=== PATIENT | female | born 1955 | race Caucasian/White ===

== ENCOUNTER 2021-07-02 08:58 | Outpatient (REF) | payer OTHER, SELFPAY ==
[2021-07-02 11:13] LABS: MANUAL DIFF FLAG NO
[2021-07-02 11:31] LABS: Basophils Percent Auto 0.5 % (0-2); Eosinophils Absolute Auto 0.1 X10*3/uL (0.0-0.4); Eosinophils Percent Auto 2.3 % (0-4); Hematocrit 39.7 % (37-47); Lymphocytes Absolute Auto 1.9 X10*3/uL (1.2-4.9); Mean Corpuscular HGB Conc 32.7 g/dl (31.0-35.0); Mean Corpuscular Hemoglobin 31.4 pg (27.0-33.0); Mean Corpuscular Volume 95.9 fL (80-98); Mean Platelet Volume 10.7 fL (9.4-12.3); Monocytes Absolute Auto 0.4 X10*3/uL (0.1-1.2); Monocytes Percent Auto 9.3 % (2-11); Neutrophils Absolute Auto 1.6 X10*3/uL (2.0-8.3); Neutrophils Percent Auto 39.9 % (45-73); Platelet Count 231 X10*3/uL (160-400); Red Blood Count 4.14 X10*6/uL (4.20-5.50); Red Cell Distribution Width 12.4 % (11.0-16.0)
[2021-07-02 11:38] LABS: Alanine Aminotransferase 16 U/L (0-31); Albumin Level 4.1 g/dL (3.5-5.0); Alkaline Phosphatase 78 U/L (39-117); Anion Gap 10 (12-20); Aspartate Amino Transferase 19 U/L (5-31); Bilirubin Total 0.4 mg/dL (0.0-1.0); Blood Urea Nitrogen 14 mg/dL (9-16); Calcium 9.2 mg/dL (8.4-10.2); Carbon Dioxide 28 mmol/L (22-29); Chloride 106 mmol/L (96-108); Cholesterol 245 mg/dL; Estimated Glomerular Filt Rate > 60; Glucose Fasting 93 mg/dL (60-99); HDL Cholesterol 76 mg/dL; LDL Cholesterol Calculated 157 mg/dl; Potassium 4.3 mmol/L (3.3-5.1); Sodium 140 mmol/L (135-145); Total Protein 6.8 g/dL (6.5-8.0); Triglycerides 60 mg/dL
[2021-07-02 12:04] LABS: Thyroid Stimulating Hormone 1.41 uIU/mL (0.32-4.0); Vitamin D 25-OH Total 29.4 ng/mL (>30)
[2021-07-02 12:46] LABS: Vitamin B12 383 pg/mL (200-900)
== END 2021-07-02 08:59 | disposition home or self-care (01) ==
LOC: HO.MANLDS 08:58
PROVIDERS: PCP Internal Medicine; Visit Provider Internal Medicine
DX: Z00.00 Encounter for general adult medical examination without abnormal findings (principal)
CPT/HCPCS: 36415; 80053; 80061; 82306; 82607; 84443; 85025

== ENCOUNTER 2022-04-03 09:42 | Outpatient (REF) | payer OTHER, SELFPAY ==
[2022-04-03 12:05] LABS: Cholesterol 256 mg/dL; HDL Cholesterol 74 mg/dL; LDL Cholesterol Calculated 172 mg/dl; Triglycerides 52 mg/dL
== END 2022-04-03 09:43 | disposition home or self-care (01) ==
LOC: HO.MANLDS 09:42
PROVIDERS: PCP Internal Medicine; Visit Provider Internal Medicine
DX: E78.5 Hyperlipidemia, unspecified (principal)
CPT/HCPCS: 36415; 80061

== ENCOUNTER 2023-03-26 10:10 | Outpatient (REF) | payer OTHER, SELFPAY ==
[2023-03-26 15:08] LABS: Alanine Aminotransferase 14 U/L (0-31); Albumin Level 3.9 g/dL (3.5-5.0); Alkaline Phosphatase 85 U/L (39-117); Anion Gap 9 (12-20); Aspartate Amino Transferase 16 U/L (5-31); Bilirubin Total 0.5 mg/dL (0.0-1.0); Blood Urea Nitrogen 17 mg/dL (9-16); Calcium 9.1 mg/dL (8.4-10.2); Carbon Dioxide 31 mmol/L (22-29); Chloride 108 mmol/L (96-108); Cholesterol 260 mg/dL; Estimated Glomerular Filt Rate > 60; Glucose Random 81 mg/dL (60-115); HDL Cholesterol 70 mg/dL; LDL Cholesterol Calculated 176 mg/dl; Potassium 4.6 mmol/L (3.3-5.1); Sodium 143 mmol/L (135-145); Total Protein 6.5 g/dL (6.5-8.0); Triglycerides 71 mg/dL
[2023-03-28 15:43] LABS: CRP High Sensitivity 1.7 mg/L
== END 2023-03-26 10:11 | disposition home or self-care (01) ==
LOC: HO.MANLDS 10:10
PROVIDERS: Visit Provider Internal Medicine
DX: Z13.220 Encounter for screening for lipoid disorders (principal); E78.00 Pure hypercholesterolemia, unspecified
CPT/HCPCS: 36415; 80053; 80061; 86141

== ENCOUNTER 2023-05-14 11:45 | Outpatient (REF) | payer OTHER, SELFPAY ==
[2023-05-14 13:59] LABS: MANUAL DIFF FLAG NO
[2023-05-14 14:24] LABS: Basophils Percent Auto 0.4 % (0-2); Eosinophils Absolute Auto 0.1 X10*3/uL (0.0-0.4); Eosinophils Percent Auto 1.4 % (0-4); Hematocrit 41.5 % (37.0-47.0); Hemoglobin 13.9 g/dl (12.0-16.0); Imm Gran Abs Auto 0.01 X10*3/uL (0.00-0.03); Imm Gran Pct Auto 0.2 % (0.0-0.4); Lymphocytes Absolute Auto 1.6 X10*3/uL (1.2-4.9); Lymphocytes Percent Auto 30.9 % (20-40); Mean Corpuscular HGB Conc 33.5 g/dl (31.0-35.0); Mean Corpuscular Hemoglobin 31.6 pg (27.0-33.0); Mean Corpuscular Volume 94.3 fL (80.0-98.0); Mean Platelet Volume 10.5 fL (9.4-12.3); Monocytes Absolute Auto 0.4 X10*3/uL (0.1-1.2); Monocytes Percent Auto 7.9 % (2-11); Neutrophils Percent Auto 59.2 % (45-73); Platelet Count 222 X10*3/uL (160-400); White Blood Count 5.1 X10*3/uL (4.8-10.8)
[2023-05-14 14:49] LABS: Alanine Aminotransferase 14 U/L (0-31); Albumin Level 3.9 g/dL (3.5-5.0); Alkaline Phosphatase 81 U/L (39-117); Anion Gap 12 (12-20); Aspartate Amino Transferase 15 U/L (5-31); Bilirubin Total 0.6 mg/dL (0.0-1.0); Blood Urea Nitrogen 15 mg/dL (9-16); C Reactive Protein 0.88 mg/dL (< or = 0.50); Calcium 9.7 mg/dL (8.4-10.2); Carbon Dioxide 29 mmol/L (22-29); Chloride 104 mmol/L (96-108); Estimated Glomerular Filt Rate > 60; Glucose Random 101 mg/dL (60-115); Iron 87 mcg/dL (30-160); Magnesium 2.2 mg/dL (1.6-2.6); Percent Iron Saturation 34 % (15-50); Potassium 4.2 mmol/L (3.3-5.1); Sodium 141 mmol/L (135-145); Total Iron Binding Capacity 255 mcg/dL (228-428); Total Protein 7.2 g/dL (6.5-8.0); Unsaturated Iron Binding 168 ug/dL
[2023-05-14 15:04] LABS: Ferritin 97 ng/mL (10-250); Free T4 (Free Thyroxine) 0.95 ng/dL (0.71-1.85); Thyroid Stimulating Hormone 0.84 uIU/mL (0.32-4.0); Vitamin D 25-OH Total 39.4 ng/mL (>30)
[2023-05-14 15:06] LABS: Erythrocyte Sedimentation Rate 23 MM/HR (0-20)
[2023-05-14 15:11] LABS: Appearance Urine Clear; Color Urine Dark Yellow; Glucose Urine UA Negative (Negative); Leukocyte Esterase Urine Negative (Negative); Nitrite Urine Negative (Negative); PH 5.5 (5.0-9.0); Specific Gravity - Urine 1.025 (1.005-1.025); Urine Blood Negative (Negative); Urine Ketones Trace mg/dL (Negative); Urine Protein Negative (Neg-Trace)
[2023-05-14 15:13] LABS: Folate 17.6 ng/mL (> or = 4.0); Vitamin B12 541 pg/mL (200-900)
== END 2023-05-14 11:46 | disposition home or self-care (01) ==
LOC: HO.MANLDS 11:45
PROVIDERS: Visit Provider Physician Assistant
DX: R53.83 Other fatigue (principal); R30.0 Dysuria
CPT/HCPCS: 80053; 81003; 82306; 82607; 82728; 82746; 83540; 83735; 84439; 84443; 85025; 85652; 86140; 86618; 86666; 86753

== ENCOUNTER 2024-09-15 09:36 | Outpatient (REF) | payer OTHER, SELFPAY ==
[2024-09-15 13:23] LABS: MANUAL DIFF FLAG NO
[2024-09-15 13:32] LABS: Basophils Percent Auto 0.9 % (0-2); Eosinophils Absolute Auto 0.1 X10*3/uL (0.0-0.4); Eosinophils Percent Auto 1.5 % (0-4); Hematocrit 38.1 % (37.0-47.0); Hemoglobin 13.2 g/dl (12.0-16.0); Imm Gran Abs Auto 0.01 X10*3/uL (0.00-0.03); Imm Gran Pct Auto 0.3 % (0.0-0.4); Lymphocytes Absolute Auto 1.5 X10*3/uL (1.2-4.9); Lymphocytes Percent Auto 42.9 % (20-40); Mean Corpuscular HGB Conc 34.6 g/dl (31.0-35.0); Mean Corpuscular Volume 92.3 fL (80.0-98.0); Mean Platelet Volume 10.4 fL (9.4-12.3); Monocytes Absolute Auto 0.3 X10*3/uL (0.1-1.2); Monocytes Percent Auto 9.3 % (2-11); Neutrophils Absolute Auto 1.6 x10*3/uL (2.0-8.3); Neutrophils Percent Auto 45.1 % (45-73); Platelet Count 247 X10*3/uL (160-400); Red Blood Count 4.13 X10*6/uL (4.20-5.50); Red Cell Distribution Width 12.5 % (11.0-16.0); White Blood Count 3.4 X10*3/uL (4.8-10.8)
[2024-09-15 13:59] LABS: Alanine Aminotransferase 14 U/L (0-31); Albumin Level 3.8 g/dL (3.5-5.0); Alkaline Phosphatase 86 U/L (39-117); Anion Gap 11 (12-20); Aspartate Amino Transferase 24 U/L (5-31); Bilirubin Total 0.4 mg/dL (0.0-1.0); Blood Urea Nitrogen 15 mg/dL (9-16); Calcium 9.6 mg/dL (8.4-10.2); Carbon Dioxide 27 mmol/L (22-29); Chloride 107 mmol/L (96-108); Cholesterol 244 mg/dL (<200); Estimated Glomerular Filt Rate > 60; Glucose Random 93 mg/dL (60-115); HDL Cholesterol 61 mg/dL (>40); LDL Cholesterol Calculated 159 mg/dL (<100); Potassium 4.1 mmol/L (3.3-5.1); Sodium 141 mmol/L (135-145); Total Protein 6.7 g/dL (6.5-8.0); Triglycerides 124 mg/dL (<150)
[2024-09-15 14:10] LABS: T4 Thyroxine 6.5 ug/dL (4.5-12.0); Thyroid Stimulating Hormone 1.35 uIU/mL (0.32-4.0)
[2024-09-15 14:32] LABS: Vitamin B12 377 pg/mL (200-900)
== END 2024-09-15 09:37 | disposition home or self-care (01) ==
LOC: HO.MANLDS 09:36
PROVIDERS: Visit Provider Internal Medicine
DX: Z00.00 Encounter for general adult medical examination without abnormal findings (principal); R53.83 Other fatigue
CPT/HCPCS: 36415; 80053; 80061; 82306; 82607; 84436; 84443; 85025

== ENCOUNTER 2025-07-11 07:58 | Outpatient (REF) | payer OTHER, SELFPAY ==
--- OUTSIDE RECORDS SUMMARY | 2025-07-11 08:02 | XMS_ITS | Encounter Summary ---
Author Organization [facility] Address [address] [place], [place] [address] Phone Care Team Providers Care Water Pollution Specialist Name Role Phone Diego Castelan DO Primary Care Provider [phone] Encounter Details Date Type Department Care Team (Late st Contact Info) Description 03/22/2022 Procedure Pass [address] [address] Social History Tobacco Use Types Packs/Day Years Used Date Smoking Tobacco: Former Cigarettes Q uit: 11/28/1989 Smokeless Tobacco: Never Alcohol Use Standard Drinks/Week Comments Yes 3 (1 standard drink = 0.6 oz pur e alcohol) per week Comments No Sex and Gender Information Value Date Recorded Sex Assigned at Not on file Legal Sex Female 9:59 PM EDT Gender Identity Not on file Sexual Orientation Not on file documented as of this encounter Plan of Treatment Upcoming Encounters Date Type Department Care Team (Late st Contact Info) Description 07/04/2025 Procedure Pass [address] [address] 09/19/2025 8:30 AM EDT Appointment [address] [address] Diego Castelan DO [address] [place] [address] [email or web address] documented as of this encounter Visit Diagnoses Not on filedocumented in this encounter Care Teams Water Pollution Specialist Relationship Specialty Start Date End Date Diego Castelan DO [email or web address] PCP - General 09/09/17 documented as of this encounter Additional Source Comments The information contained in this document represents components of the legal health record. It is not the complete legal health record.[facility]
--- OUTSIDE RECORDS SUMMARY | 2025-07-11 08:02 | XMS_ITS | Patient Health Record ---
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
[2025-07-11 13:05] LABS: MANUAL DIFF FLAG NO
[2025-07-11 13:08] LABS: Hematocrit 40.4 % (37.0-47.0); Hemoglobin 13.4 g/dl (12.0-16.0); Imm Gran Abs Auto 0.01 X10*3/uL (0.00-0.03); Imm Gran Pct Auto 0.3 % (0.0-0.4); Lymphocytes Absolute Auto 1.8 X10*3/uL (1.2-4.9); Mean Corpuscular HGB Conc 33.2 g/dl (31.0-35.0); Mean Corpuscular Hemoglobin 31.2 pg (27.0-33.0); Mean Corpuscular Volume 94.0 fL (80.0-98.0); NRBC Abs Auto 0.000 X10*3/uL (0.0-0.012); NRBC Pct Auto 0.0 /100WBC (0.0-0.2); Platelet Count 238 X10*3/uL (160-400); Red Blood Count 4.30 X10*6/uL (4.20-5.50); White Blood Count 3.9 X10*3/uL (4.8-10.8)
[2025-07-11 13:34] LABS: Alanine Aminotransferase 19 U/L (0-31); Albumin Level 4.1 g/dL (3.5-5.0); Alkaline Phosphatase 93 U/L (39-117); Anion Gap 13 (12-20); Aspartate Amino Transferase 23 U/L (5-31); Blood Urea Nitrogen 20 mg/dL (9-16); Calcium 9.2 mg/dL (8.4-10.2); Carbon Dioxide 29 mmol/L (22-29); Chloride 105 mmol/L (96-108); Cholesterol 261 mg/dL (<200); Estimated Glomerular Filt Rate > 60; HDL Cholesterol 61 mg/dL (>40); Potassium 4.5 mmol/L (3.3-5.1); Sodium 142 mmol/L (135-145); Total Protein 7.0 g/dL (6.5-8.0); Triglycerides 120 mg/dL (<150)
[2025-07-11 14:03] LABS: Vitamin B12 292 pg/mL (200-900)
== END 2025-07-11 07:59 | disposition home or self-care (01) ==
LOC: HO.MANLDS 07:58
PROVIDERS: Visit Provider Internal Medicine
DX: Z00.00 Encounter for general adult medical examination without abnormal findings (principal); E03.9 Hypothyroidism, unspecified; E53.8 Deficiency of other specified B group vitamins; E55.9 Vitamin D deficiency, unspecified; R53.83 Other fatigue
CPT/HCPCS: 36415; 80053; 80061; 82306; 82607; 84443; 85025

== ENCOUNTER 2025-10-29 12:03 | Outpatient (REF) | payer OTHER, SELFPAY ==
--- OUTSIDE RECORDS SUMMARY | 2022-07-02 13:55 | XMS_ITS | Encounter Summary ---
Author Organization [facility] Address [address] [place] [address] Phone Care Team Providers Care Accounting Support Specialist Name Role Phone Diego Castelan Primary Care Provider [phone] Encounter Details Date Type Department Care Team (Late st Contact Info) Description 07/02/2022 2:55 PM EDT Hospital Encounter [facility] [address] [place] [address] Alia Singh, ARTIST MANAGER [address] [place] [address] [email or web address] Social History Tobacco Use Types Packs/Day Years Used Date Smoking Tobacco: Former Cigarettes 0.3 10 0 11/24/1985 - 11/28/1989 Smokeless Tobacco: Never Alcohol Use Standard Drinks/Week Comments Yes 2 (1 standard drink = 0.6 oz pur e alcohol) per week Education Answer Date Recorded Are you interested in more education? Not on jose f e 03/21/2023 Are you concerned about learning? Not on file 03/21/2023 No 03/21/2023 No 03/21/2023 Digital Access Answer Date Recorded No 04/18/2023 No 04/18/2023 Reliable internet access at home? Not on file 04/18/2023 Device with a working camera? Not on file Comments No Sex and Gender Information Value Date Recorded Sex Assigned at Not on file Legal Sex Female 9:59 PM EDT Gender Identity Not on file Sexual Orientation Not on file documented as of this encounter Plan of Treatment Not on file documented as of this encounter Procedures Procedure Name Priority Date/Time Associated Diagnosis Comments XR ANKLE 3 OR MORE VIEWS (LEFT) Urgent/patient waiting 07/02/2022 2:58 PM EDT Acute left ankle pain documented in this encounter Results * XR ANKLE 3 OR MORE VIEWS (LEFT) (07/02/2022 2:58 PM EDT) Anatomical Region Laterality Modality Ankle Left Computed Radiogr aphy 07/02/2022 3:01 PM EDT Impressions 07/02/2022 3:05 PM EDT No fracture or dislocation. ATTESTATION: Rocio Camilo as teaching physician, have reviewed the images for this case and if necessary edited the report originally created by Dagoberto Disla. Narrative 07/02/2022 3:05 PM EDT XR ANKLE 3 OR MORE VIEWS (LEFT) COMPARISON: Ankle L FINDINGS: No fracture. Normal alignment. Symmetric ankle mortise. Normal joint spaces. Diffuse soft tissue swelling about the ankle. Procedure Note Rocio Barrera MD - 07/02/2022 XR ANKLE 3 OR MORE VIEWS (LEFT) COMPARISON: Ankle L FINDINGS: No fracture. Normal alignment. Symmetric ankle mortise. Normal jointspaces. Diffuse soft tissue swelling about the ankle. IMPRESSION: No fracture or dislocation. ATTESTATION: Rocio Camilo as teaching physician, have reviewed theimages for this case and if necessary edited the report originally createdby Dagoberto Disla. us Alia Singh ARTIST MANAGER IMG XR LOWER EXTREMITY Final Result documented in this encounter Visit Diagnoses Not on filedocumented in this encounter Care Teams Accounting Support Specialist Relationship Specialty Start Date End Date Diego Castelan DO PCP - General 09/09/17 09/26/25 documented as of this encounter Additional Source Comments The information contained in this document represents components of the legal health record. It is not the complete legal health record.[facility]
--- NOTE | ~2025-10-29 | XR_ITS ---
EXAMINATION: XR KNEE 3 VIEWS BILATERAL HISTORY: PAIN IN RIGHT KNEE, PAIN IN LEFT KNEE. M25.562, M25.561 COMPARISON: There are no prior studies available for comparison. FINDINGS: Standing AP views of both knees and additional lateral and sunrise patellar views of the bilateral knees are submitted. Osseous mineralization is normal. There is no fracture or dislocation. There is mild narrowing of the medial and patellofemoral compartments. There is a small joint effusion on the right. XR/XR Knee Nicholas 3V IMPRESSION: Small right knee joint effusion. Mild narrowing of the medial and patellofemoral compartments of both knees. Electronically signed by: Vasquez Sorenson MD 10/31/2025 08:17 AM [facility]
--- OUTSIDE RECORDS SUMMARY | 2025-10-29 12:10 | XMS_ITS | Encounter Summary ---
Author Organization [facility] Address [address] [place] [address] Phone Care Team Providers Care Bottom Cementer Name Role Phone Diego Castelan DO Primary Care Provider [phone] Diego Castelan DO Primary Care Provider [phone] Encounter Details Date Type Department Care Team ([facility] st Contact Info) Description 03/29/2024 Transcribe Orders Virtual Department [address] [place] [address] Diego Castelan DO [address] [facility] [place] [address] [place] [address] [email or web address] Breast screening (Primary Dx) Social History Tobacco Use Types Packs/Day Years [...] on file documented as of this encounter Visit Diagnoses Diagnosis Breast screening- Primary Breast screening, unspecified documented in this encounter Care Teams Bottom Cementer Relationship Specialty Start Date End Date Diego Castelan DO [email or web address] PCP - General 09/09/17 09/26/25 Diego Castelan DO [address] [place] [address] [email or web address] PCP - General Internal Medicine 09/27/25 documented as of this encounter Additional Source Comments The information contained in this document represents components of the legal health record. It is not the complete legal health record.[facility]
--- OUTSIDE RECORDS SUMMARY | 2025-10-29 12:10 | XMS_ITS | Encounter Summary ---
Author Organization [facility] Address [address] [place] [address] Phone Care Team Providers Care Comic Illustrator Name Role Phone Zhouann Diego Sena DO Primary Care Provider [phone] Diego Castelan DO Primary Care Provider [phone] Encounter Details Date Type Department Care Team (Late st Contact Info) Description 03/22/2022 Procedure Pass [address] [address] Social History Tobacco Use Types Packs/Day Years [...] on filedocumented in this encounter Care Teams Comic Illustrator Relationship Specialty Start Date End Date Diego Castelan DO [email or web address] PCP - General 09/09/17 09/26/25 Diego Castelan DO [address] [place] [address] [email or web address] PCP - General Internal Medicine 09/27/25 documented as of this encounter Additional Source Comments The information contained in this document represents components of the legal health record. It is not the complete legal health record.[facility]
--- OUTSIDE RECORDS SUMMARY | 2025-10-29 12:10 | XMS_ITS | Encounter Summary ---
Author Organization [facility] Address [address] [place] [address] Phone Care Team Providers Care Medical Educator Name Role Phone Diego Castelan DO Primary Care Provider [phone] Diego Castelan DO Primary Care Provider [phone] Encounter Details Date Type Department Care Team (Late st Contact Info) Description 07/04/2025 Procedure Pass [address] [address] Social History Tobacco Use Types Packs/Day Years [...] on filedocumented in this encounter Care Teams Medical Educator Relationship Specialty Start Date End Date Diego Castelan DO [email or web address] PCP - General 09/09/17 09/26/25 Diego Castelan DO [address] [place] [address] [email or web address] PCP - General Internal Medicine 09/27/25 documented as of this encounter Additional Source Comments The information contained in this document represents components of the legal health record. It is not the complete legal health record.[facility]
--- OUTSIDE RECORDS SUMMARY | 2025-10-29 12:10 | XMS_ITS | Encounter Summary ---
Author Organization [facility] Address [address] [place] [address] Phone Care Team Providers Care Skeiner Name Role Phone Diego Castelan DO Primary Care Provider [phone] Diego Castelan DO Primary Care Provider [phone] Encounter Details Date Type Department Care Team (Late st Contact Info) Description 02/15/2021 Ancillary Orders Virtual Department [address] [place] [address] Diego Castelan DO [address] [facility] [place] [address] [place] [address] [email or web address] Breast screening Social History Tobacco Use Types Packs/Day Years [...] on file documented as of this encounter Results * BI MAMMOGRAM SCREENING WITH TOMOSYNTHESIS WITH CAD (BILATERAL) (04/16/2021 11:10 AM EDT) Anatomical Region Laterality Modality Breast Left, Breast Right, Breast Bilateral Bila teral Mammography 04/16/2021 11:1 1 AM EDT Impressions 04/16/2021 12:20 PM EDT No mammographic signs of malignancy. Annual screening is recommended. BI-RADS CATEGORY: 1 - Negative. DENSITY: The breast tissue is almost entirely fat. Narrative 04/16/2021 12:20 PM EDT Bilateral mammography is performed in conjunction with computed aided detection. 3-D tomography along with 2-D C view imaging was also performed. Compared with previous mammogram dated 09/07/2018. No suspicious masses, areas of architectural distortion or suspicious microcalcifications. Procedure Note Ra Salazar MD - 04/16/2021 Bilateral mammography is performed in conjunction with computed aideddetection. 3-D tomography along with 2-D C view imaging was alsoperformed. Compared with previous mammogram dated 09/07/2018. No suspicious masses, areas of architectural distortion or suspiciousmicrocalcifications. IMPRESSION: No mammographic signs of malignancy. Annual screening is recommended. BI-RADS CATEGORY: 1 - Negative. DENSITY: The breast tissue is almost entirely fat. Diego Castelan DO IMG MG EXAMS Final Result documented in this encounter Visit Diagnoses Diagnosis Breast screening Breast screening, unspecified Breast screening Breast screening, unspecified documented in this encounter Care Teams Skeiner Relationship Specialty Start Date End Date Diego Castelan DO PCP - General 09/09/17 09/26/25 Diego Castelan DO [address] [place] [address] PCP - General Internal Medicine 09/27/25 documented as of this encounter Additional Source Comments The information contained in this document represents components of the legal health record. It is not the complete legal health record.[facility]
--- OUTSIDE RECORDS SUMMARY | 2025-10-29 12:11 | XMS_ITS | Encounter Summary ---
Author Organization [facility] Address [address] [place] [address] Phone Care Team Providers Care Assistant To The President Name Role Phone Diego Castelan DO Primary Care Provider [phone] Diego Castelan DO Primary Care Provider [phone] Encounter Details Date Type Department Care Team (Late st Contact Info) Description 02/03/2021 Transcribe Orders Virtual Department [address] [place] [address] Diego Castelan DO [address] [facility] [place] [address] [place] [address] [email or web address] Osteopenia, unspecified location (Primary Dx) Social History Tobacco Use Types [...] documented as of this encounter Results * BD DXA AXIAL (SPINE) WITH HIP (04/16/2021 10:55 AM EDT) Anatomical Region Laterality Modality Bone Density Bone Density 04/16/2021 1:57 PM EDT Impressions 04/16/2021 1:58 PM EDT Osteopenia. POS - [id number] Narrative 04/16/2021 1:58 PM EDT This is a 66-year-old postmenopausal white female with a reported history of osteopenia. She is not on estrogen replacement therapy, does not take calcium supplements, describes a maternal history of osteoporosis, and denies a perceived height loss. Evaluation of the lumbar spine and hips was performed and felt to be technically adequate. Total bone mineral density in the L1-L4 vertebral bodies was calculated at 0.875 gm/cm2 with a T-score of -1.6 and Z-score of 0.4, falling within the WHO classification of osteopenia. Total bone mineral density in the right hip was calculated at 0.755 gm/cm2 with a T-score of -1.5 and Z-score of -0.1 falling within the WHO classification of osteopenia. Total bone mineral density in the left hip was calculated at 0.811 gm/cm2 with a T-score of -1.1 and Z-score of 0.3 falling within the WHO classification of osteopenia. Procedure Note Fernandez Ryder MD - 04/16/2021 This is a 66-year-old postmenopausal white female with a reported historyof osteopenia. She is not on estrogen replacement therapy, does not takecalcium supplements, describes a maternal history of osteoporosis, anddenies a perceived height loss. Evaluation of the lumbar spine and hips was performed and felt to betechnically adequate. Total bone mineral density in the L1-L4 vertebral bodies was calculated at0.875 gm/cm2 with a T-score of -1.6 and Z-score of 0.4, falling within theWHO classification of osteopenia. Total bone mineral density in the right hip was calculated at 0.755 gm/da0upge a T-score of -1.5 and Z-score of -0.1 falling within the WHOclassification of osteopenia. Total bone mineral density in the left hipwas calculated at 0.811 gm/cm2 with a T-score of -1.1 and Z-score of 0.3falling within the WHO classification of osteopenia. IMPRESSION: Osteopenia. POS - [id number] Diego Castelan DO IMG BD BONE DENSITY DEXA Final R esult documented in this encounter Visit Diagnoses Diagnosis Osteopenia, unspecified location- Primary Osteopenia, unspecified location documented in this encounter Care Teams Assistant To The President Relationship Specialty Start Date End Date Diego Castelan DO [email or web address] PCP - General 09/09/17 09/26/25 FlipDiegoDO [address] [place] [address] [email or web address] PCP - General Internal Medicine 09/27/25 documented as of this encounter Additional Source Comments The information contained in this document represents components of the legal health record. It is not the complete legal health record.[facility]
--- OUTSIDE RECORDS SUMMARY | 2025-10-29 12:11 | XMS_ITS | Continuity of Care Document ---
Author Organization [facility], [facility] Address [address] [facility] [place] [address] Assessment No assessment recorded. Plan of Treatment Reminders Order Date Submit Date Provider Last Modified By Organization Details Last Modified Time Details Appointments PROCEDURE 15 2024 09:45A M DR JUNE Not available Not available Not available FOLLOW UP 15 2025 09:00A M DR JUNE Not available Not available Not available ANNUAL EXAM 2025 01:30P M DR JUNE Not available Not available Not available Lab None recorded. Referral None recorded. Procedures None recorded. Surgeries None recorded. Imaging XR, knee, 3 view 2024 025 [facility] Central Scheduling (Not Breast), [address] [place] [address], [id number], 10/28/2025 15:25:16 XR, knee, 3 view 2024 025 [facility] Central Scheduling (Not Breast), [address] [place] [address], [id number], 10/28/2025 15:20:26 Medication Orders None recorded. Patient TargetsNo targets recorded. Patient InstructionsNo instructions recorded. Reason for Referral None Reported. Problems Name Problem SNOMED Code Status Onset Date Resolution Date Notes Provider Name and Address Organization Details Recorded Time Fatigue 52667490 Active 2022 YUDITH BARKER [address] [facility], [place], [address], [facility] 3 11:06:31 Dysuria 62235556 Active 2022 YUDITH BARKER [address] [place], [address], [facility] 3 11:10:49 Cataract 986954760 Active 2024 Diego June DO [address] [place], [address], [facility] 5 09:36:13 Pain of right knee joint 040118814227 100 Active 2024 YUDITH BARKER [address] [place], [address], [facility] 5 15:09:16 Synovial popliteal cyst of right knee Active 2024 YUDITH BARKER [address] [place], [address], [facility] 5 15:10:58 Pain of left knee joint 278317978969 107 Active 2024 YUDITH BARKER [address] [place], [address], [facility] 5 15:18:21 Primary gonarthro sis, bilateral 040814513 Active 2024 YUDITH BARKER [address] [place], [address], [facility] 5 15:19:57 Problem Notes None recorded. Medical Equipment None Reported. Allergies No known drug allergies Medications Name Sig Start Date Stop Date Status Note LastModified by Organization Details LastModified Time ketorolac 0.5 % eye drops INSTILL 1 DROP IN RIGHT EYE THREE TIMES DAILY. START 2 DAYS BEFORE CATARACT SURGERY 07/19 completed Not Available Not Available Not Available cephalexin 500 mg capsule 11/26 completed Not Available Not Available Not Available ibuprofen 600 mg tablet TAKE 1 TABLET BY MOUTH THREE TIMES DAILY 06/15 completed Not Available Not Available Not Available Boostrix Tdap 2.5 Lf unit-8 mcg-5 Lf/0.5 mL intramuscul ar suspension 06/12 completed Not Available Not Available Not Available Flucelvax Quad 9401-1367 (PF) 60 mcg (15 mcg x 4)/0.5 mL IM syringe 06/12 completed Not Available Not Available Not Available Jay COVID-19 Ag Self Test kit TEST DIRECTED TODAY 06/15 completed Not Available Not Available Not Available Vitals Date Recorded Body height Body mass index (BMI) Body weight Heart rate Oxygen saturation Systolic And Diastolic Provider Name and Address Organization Details Last Updated DateTime 5 170.18 cm 28.5 kg/m2 00733.8 1 g 72 /min 98 % 110/70 mm[Hg] Dominiquemookie Alcocermond [facility] 5 14:49:59 Social History Question Answer Notes LastModified by Organizat ion Details LastModified Time Tobacco Smoking Status Former Smoker Not Available [facility] 09/26/2020 03:36:23 What Was The Date Of Your Most Recent Tobacco Screening? 10/28/2025 [email or web address] Information not available 10/28/2025 How Many Years Have You Smoked Tobacco? 5 [id number] Information not available 09/26/2020 Sex: Unknown Functional Status Question Answer Note LastModified by Organization D etails LastModified Time Do you or have you ever used any other forms of tobacco or nicotine? No [email or web address] Information not available 06/13/2023 Mental Status None recorded. Family History Nothing Reported. Medical History No medical history recorded. Gynecological HistoryNo gynecological history recorded. Obstetrics History GPAL:G 0 P 0 0 0 0 Immunizations Vaccine Type Date Status Note Provider Nam e and Address Organization Details Recorded Time Tdap 7 completed Nadia desai [facility] 06/12/2021 12:18:00 COVID-19, mRNA, LNP-S, PF, 30 mcg/0.3 mL dose 1 completed Nadia desai [facility] 06/13/2021 12:18:27 COVID-19, mRNA, LNP-S, PF, 30 mcg/0.3 mL dose 1 completed Nadia Gillicki giselle [facility] 06/13/2021 12:18:32 COVID-19, mRNA, LNP-S, PF, 30 mcg/0.3 mL dose 1 completed Kathleen Gatica [facility], [facility] 11/26/2022 08:46:37 COVID-19, mRNA, LNP-S, PF, 30 mcg/0.3 mL dose 2 completed Kathleen Gatica [facility] 11/26/2022 08:46:54 influenza, unspecified formulation 1 completed Kathleen Gatica [facility], [facility] 11/26/2022 08:47:18 influenza, unspecified formulation 2 completed Kathleen Gatica [facility], [facility] 11/26/2022 14:46:18 Influenza, split virus, quadrivalent, preservative 8 completed Cee Lea [facility] 11/09/2018 08:46:15 Influenza, split virus, quadrivalent, preservative 0 completed Diego June DO [address] [place] [address], [address], [facility] 07/29/2020 09:04:12 zoster recombinant 0 completed Umm Eli [facility] 09/13/2020 13:57:32 zoster, unspecified formulation 0 completed Diego June DO [address] [place] [address], [address], [facility] 11/23/2020 15:53:05 Past Encounters Encounter ID Performer Location Encounter Start Date Encounter Closed Date Diagnosis/Indication Diagnosis SNOMED-CT Code Diagnosis ICD10 Code Diagnosis IMO Codes Diagnosis Note [id number] YUDITH BARKER [facility] [address] [facility] [address] 10/28/2025 14:43:02 10/28/2025 15:21:05 Pain of right knee joint 6088949971 97181 M25.561 531868 Synovial p opliteal cyst of right knee 0143406313 M71.21 4462021 probable pettit's cystrecomm ended cortisone injection Pain of le ft knee joint 4478727102 14595 M25.562 608946 Primary go narthrosis, bilateral 897944400 M17.0 [id number] Health Concerns Section Related Observation LastModified by Organization Vlad muller LastModified Time None Recorded Concern Status LastModified by Organization Details LastModified Time None Recorded Payers Encounter Date Sequence Insurance Name Policy Number Policy Allred Covered Member ID Allred Member ID Guarantor Name 10/28/[address] [facility] [id number] 1 Corine Toure [id number] Corine Toure Notes Date Note Type Note Provider Name a nd Address Organization Details Recorded Time 10/28/2025 text/html ROS as noted in the HPI c/o pain right knee joint patient has right knee painstarted yesterdayno known injury she does have to bend and kneel a lot taking care of her 89 year old motherpain with walking up the stairs and kneepain is concentrated underneath the patella bone and inferior to the patellar bonealso has swelling and tight sensation behind the kneestates like it feels like a tennis ball is in the back of her kneenotable tenderness and swelling probable OA (degenerative changes) and pettit's cystshe is swollenrecom XR with f/u knee cortisone inj which pt agrees towill fu next week YUDITH BARKER [address] [facility], [place], [address], [facility] 10/28/2025 15:21:04 OBGyn Episode No OBEpisode recorded.
--- OUTSIDE RECORDS SUMMARY | 2025-10-29 12:11 | XMS_ITS | Encounter Summary ---
Author Organization [facility] Address [address] [place] [id number] Phone Care Team Providers Care Soil Checker Name Role Phone Diego Castelan DO Primary Care Provider [phone] Diego Castelan DO Primary Care Provider [phone] Encounter Details Date Type Department Care Team ([facility] st Contact Info) Description 07/04/2025 Transcribe Orders Virtual Department [address] [place] [address] Diego Castelan DO [address] [facility] [place] [address] [place] [address] [email or web address] Breast screening (Primary Dx) Social History Tobacco [...] MAMMOGRAM SCREENING WITH TOMOSYNTHESIS WITH CAD (BILATERAL) (09/27/2025 3:09 PM EST) Anatomical Region Laterality Modality Breast Left, Breast Right, Breast Bilateral Bila teral Mammography 09/27/2025 5:13 PM EST Impressions 09/27/2025 5:14 PM EST No mammographic evidence of malignancy in either breast. Annual screening mammography is recommended. BI-RADS 1 NEGATIVE The patient will be notified of the results and recommendations. Narrative 09/27/2025 5:14 PM EST BI MAMMOGRAM SCREENING WITH TOMOSYNTHESIS WITH CAD (BILATERAL) Additional patient information: Screening. COMPARISON: Comparison is made with relevant prior imaging. Breast composition: There are scattered areas of fibroglandular density. FINDINGS: No abnormal masses, suspicious calcifications, or other significant findings are identified mammographically in either breast. Procedure Note Brisa Harris MD - 09/27/2025 BI MAMMOGRAM SCREENING WITH TOMOSYNTHESIS WITH CAD (BILATERAL) Additional patient information: Screening. COMPARISON: Comparison is made with relevant prior imaging. Breast composition: There are scattered areas of fibroglandular density. FINDINGS: No abnormal masses, suspicious calcifications, or other significantfindings are identified mammographically in either breast. IMPRESSION: No mammographic evidence of malignancy in either breast. Annual screening mammography is recommended. BI-RADS 1 NEGATIVE The patient will be notified of the results and recommendations. Diego Castelan DO IMG MG EXAMS Final Result documented in this encounter Visit Diagnoses Diagnosis Breast screening- Primary Breast screening, unspecified Breast screening Breast screening, unspecified documented in this encounter Care Teams Soil Checker Relationship Specialty Start Date End Date Diego Castelan DO PCP - General 09/09/17 09/26/25 Diego Castelan DO [address] [place] [address] [email or web address] PCP - General Internal Medicine 09/27/25 documented as of this encounter Additional Source Comments The information contained in this document represents components of the legal health record. It is not the complete legal health record.[facility]
--- OUTSIDE RECORDS SUMMARY | 2025-10-29 12:11 | XMS_ITS | Encounter Summary ---
Author Organization [facility] Address [address] [place] [id number] Phone Care Team Providers Care Elevator Constructor Supervisor Name Role Phone Diego Castelan DO Primary Care Provider [phone] Diego Castelan DO Primary Care Provider [phone] Encounter Details Date Type Department Care Team ([facility] st Contact Info) Description 12/07/2024 Transcribe Orders Virtual Department [address] [place] [address] Diego Castelan DO [address] [facility] [place] [address] [place] [address] [email or web address] Cough, unspecified type (Primary Dx) Social History Tobacco Use Types [...] as of this encounter Visit Diagnoses Diagnosis Cough, unspecified type- Primary documented in this encounter Care Teams Elevator Constructor Supervisor Relationship Specialty Start Date End Date Diego Castelan DO PCP - General 09/09/17 09/26/25 Diego Castelan DO [address] [place] [id number] PCP - General Internal Medicine 09/27/25 documented as of this encounter Additional Source Comments The information contained in this document represents components of the legal health record. It is not the complete legal health record.[facility]
--- OUTSIDE RECORDS SUMMARY | 2025-10-29 12:11 | XMS_ITS | Encounter Summary ---
Author Organization [facility] Address [address] [place] [id number] Phone Care Team Providers Care Mechanical Lead Name Role Phone Diego Castelan DO Primary Care Provider [phone] Diego Castelan DO Primary Care Provider [phone] Encounter Details Date Type Department Care Team (Late st Contact Info) Description 03/22/2022 Transcribe Orders Virtual Department [address] [place] [address] Diego Castelan DO [address] [facility] [place] [address] [place] [address] [email or web address] Breast screening (Primary Dx) Social History Tobacco [...] MAMMOGRAM SCREENING WITH TOMOSYNTHESIS WITH CAD (BILATERAL) (04/17/2022 1:52 PM EDT) Anatomical Region Laterality Modality Breast Left, Breast Right, Breast Bilateral Bila teral Mammography 04/17/2022 6:41 PM EDT Impressions 04/17/2022 6:44 PM EDT BILATERAL BREASTS: Negative, no evidence of malignancy. Normal interval follow- up is recommended in 12 months. Bi-RADS: BI-RADS CATEGORY: 1 - Negative. DENSITY: There are scattered fibroglandular densities. Narrative 04/17/2022 6:44 PM EDT STUDY: Bilateral screening mammography with tomosynthesis and CAD TECHNIQUE: Bilateral full-field digital screening mammography is obtained and read in conjunction with computer-aided detection. Tomosynthesis as well as 2-D C view imaging were obtained. COMPARISON: Comparison made to multiple prior, most recent April 16, 2021, and most remote March 07, 2010. BREAST COMPOSITION: There are scattered areas of fibroglandular density BILATERAL BREASTS: No significant masses, suspicious calcifications or other abnormalities are seen. Procedure Note Carmen Calabrese MD - 04/17/2022 STUDY: Bilateral screening mammography with tomosynthesis and CAD TECHNIQUE: Bilateral full-field digital screening mammography is obtainedand read in conjunction with computer-aided detection. Tomosynthesis aswell as 2-D C view imaging were obtained. COMPARISON: Comparison made to multiple prior, most recent April 16, 2021,and most remote March 07, 2010. BREAST COMPOSITION: There are scattered areas of fibroglandulardensity BILATERAL BREASTS: No significant masses, suspicious calcifications orother abnormalities are seen. IMPRESSION: BILATERAL BREASTS: Negative, no evidence of malignancy. Normal intervalfollow-up is recommended in 12 months. Bi-RADS: BI-RADS CATEGORY: 1 - Negative. DENSITY: There are scattered fibroglandular densities. Diego Castelan DO IMG MG EXAMS Final Result documented in this encounter Visit Diagnoses Diagnosis Breast screening- Primary Breast screening, unspecified Breast screening Breast screening, unspecified documented in this encounter Care Teams Mechanical Lead Relationship Specialty Start Date End Date Diego Castelan DO PCP - General 09/09/17 09/26/25 Diego Castelan DO [address] [place] [address] [email or web address] PCP - General Internal Medicine 09/27/25 documented as of this encounter Additional Source Comments The information contained in this document represents components of the legal health record. It is not the complete legal health record.[facility]
--- OUTSIDE RECORDS SUMMARY | 2025-10-29 12:11 | XMS_ITS | Data Portability ---
Author Organization [facility] Patient Home Address [address] [place] [address] Assessment Encounter Date Assessment Date Assessment LastModified by Organization Details LastModified Time 12/24/2024 12/24/2024 pre op eval for cataract surgery Per the 2017 (revised) ACC guidelines this patient is a low risk for the proposed procedure and is cleared. Not available 12/24/2024 09:39:30 07/19/2025 07/19/2025 [id number] [place] [id number] (TONGUE AND QUARTER STITCHER) MDM MODERATE MUST MEET 2 OUT OF 3 ELEMENTS: PROBLEMS, DATA OR RISK ELEMENT 1: PROBLEMS ADDRESSED 1 OR MORE CHRONIC ILLNESS WITH EXACERBATION OR 2 OR MORE STABLE CHRONIC ILLNESSES OR 1 UNDIAGNOSED NEW PROBLEM OR 1 ACUTE ILLNESS W/SYMPTOMS OR 1 ACUTE COMPLICATED INJURY ELEMENT 2: DATA MUST MEET 1 OF 3 CATEGORIES CATEGORY 1: REVIEW OF PRIOR EXTERNAL NOTES, REVIEW OF RESULTS, ORDERING OF EACH TEST, ASSESSMENT REQUIRING INDEPENDENT HISTORIAN OR CATEGORY 2: INDEPENDENT INTERPRETATION OF TESTS BY ANOTHER PHYSICIAN OR SPECIALIST OR CATEGORY 3: DISCUSSION OF MGT OR TEST INTERPRETATION W/EXTERNAL PHYSICIAN OR SPECIALIST ELEMENT 3: RISK RISK OF COMPLICATIONS AND/OR MORBIDITY OR MORTALITY OF PATIENT MANAGEMENT PROVIDER MUST THOROUGHLY DOCUMENT EACH ELEMENT THAT IS COVERED Not available 07/19/2025 15:34:56 Plan of Treatment Reminders Order Date Submit Date Provider Last Modified By Organization Details Last Modified Time Details Appointments PROCEDURE 15 2024 09:45A M DR JUNE Not available Not available Not available FOLLOW UP 15 [address] JUNE Not available Not available Not available ANNUAL EXAM 2025 01:30P M DR JUNE Not available Not available Not available Lab CMP, serum or plasma 2023 024 [facility], [address] [place] [address], [id number], 09/16/2024 11:14:21 lipid panel, blood 2023 [facility], [address] [place] [address], [id number], 06/15/2024 11:42:26 CBC w/ auto diff 2023 [facility], [address] [place] [address], [id number], 06/15/2024 11:42:26 vitamin D, 25-hydrox y, total, serum 2023 [facility], [address] [place] [address], [id number], 06/15/2024 11:42:25 TSH + free T4, serum 2023 [facility], [address] [place] [address], [address], 06/15/2024 11:42:25 vitamin B12, serum 2023 [facility], [address] [place] [address], [address], 06/15/2024 11:42:26 Referral None recorded. Procedures None recorded. Surgeries None recorded. Imaging XR, knee, 3 view 2024 025 [facility] Central Scheduling (Not Breast), [address] [place], [address], 10/28/2025 15:25:16 XR, knee, 3 view 2024 025 [facility] Central Scheduling (Not Breast), [address] [place], [address], 10/28/2025 15:20:26 Medication Orders None recorded. Patient TargetsNo targets recorded. Patient InstructionsNo instructions recorded. Reason for Referral None Reported. Results Created Date Observation Date Name Description Value Unit Range Abnormal Flag Note LastModifiedBy Organization Detail LastModifiedTime 09/27/2009/27/2025 MAMMO , scree ceasar, digit al, bilat eral No observ ation record ed. [email or web address] [facility] ([facility]) - Callback Orders Only [address] [place], [address], 09/28/2025 05:33:02 Result Notes None recorded. Problems Name Problem SNOMED Code Status Onset Date Resolution Date Notes Provider Name and Address Organization Details Recorded Time Fatigue 40660701 Active 2022 YUDITH BARKER [address] [place] [address], [phone], [facility] 3 11:06:31 Dysuria 60678457 Active 2022 YUDITH BARKER [address] [place] [address], [address], [facility] 3 11:10:49 Cataract 539116916 Active 2024 Diego June DO [address] [place] [address], [address], [facility] 5 09:36:13 Pain of right knee joint 512584900581 100 Active 2024 YUDITH BARKER [address] [place] [address], [address], [facility] 5 15:09:16 Synovial popliteal cyst of right knee Active 2024 YUDITH BARKER [address] [place] [address], [address], [facility] 5 15:10:58 Pain of left knee joint 150707993747 107 Active 2024 YUDITH BARKER [address] [place] [address], [address], [facility] 5 15:18:21 Primary gonarthro sis, bilateral 135141309 Active 2024 YUDITH BARKER [address] [facility], [place], [address], [facility] 15:19:57 Problem Notes None recorded. Medical Equipment [...] Available Not Available Not Available Flucelvax Quad 9268-1801 (PF) 60 mcg (15 mcg x 4)/0.5 mL IM syringe 06/12 completed Not Available Not Available Not Available BinaxNOW COVID-19 Ag Self Test kit TEST DIRECTED TODAY 06/15 completed Not Available Not Available Not Available Vitals Date Recorded Body height Body mass index (BMI) Body weight Heart rate Oxygen saturation Systolic And Diastolic Provider Name and Address Organization Details Last Updated DateTime 5 170.18 cm 27.6 kg/m2 81788.2 6 g 71 /min 98 % 120/78 mm[Hg] Dominique Soria [facility] 5 09:17:09 Date Recorded Body height Body mass index (BMI) Body weight Heart rate Oxygen saturation Systolic And Diastolic Provider Name and Address Organization Details Last Updated DateTime 3 170.18 cm 27.6 kg/m2 55482.2 6 g 63 /min 97 % 122/78 mm[Hg] [facility] 11:46:20 Date Recorded Body height Body mass index (BMI) Body weight Heart rate Oxygen saturation Systolic And Diastolic Provider Name and Address Organization Details Last Updated DateTime 4 170.18 cm 27.6 kg/m2 25638.2 6 g 74 /min 97 % 110/70 mm[Hg] Dominique Soria [facility] 4 11:01:46 Date Recorded Body height Body mass index (BMI) Body weight Heart rate Oxygen saturation Systolic And Diastolic Provider Name and Address Organization Details Last Updated DateTime 5 170.18 cm 28.6 kg/m2 19317.9 7 g 75 /min 94 % 112/70 mm[Hg] STEVEN CAMPOS [facility] 5 15:09:29 Date Recorded Body height Body mass index (BMI) Body weight Heart rate Oxygen saturation Systolic And Diastolic Provider Name and Address Organization Details Last Updated DateTime 5 170.18 cm 28.5 kg/m2 85945.8 1 g 72 /min 98 % 110/70 mm[Hg] Dominique Soria [facility] 5 14:49:59 Social History Question Answer Notes LastModified by Organizat ion Details LastModified Time Tobacco Smoking Status Former Smoker Not Available [facility] 09/26/2020 03:36:23 What Was The Date Of Your Most Recent Tobacco Screening? 10/28/2025 [email or web address] Information not available 10/28/2025 How Many Years Have You Smoked Tobacco? 5 [id number] Information not available 09/26/2020 Sex: Unknown Functional Status Question Answer Note LastModified by Organization D etails LastModified Time Do you or have you ever used any other forms of tobacco or nicotine? No [email or web address] Information not available 06/13/2023 Mental Status None recorded. Family History Nothing Reported. Medical History No medical history recorded. Gynecological HistoryNo gynecological history recorded. Obstetrics History GPAL:G 0 P 0 0 0 0 Immunizations Vaccine Type Date Status Note Provider Nam e and Address Organization Details Recorded Time Tdap 7 completed Nadia desai [facility] 06/12/2021 12:18:00 COVID-19, mRNA, LNP-S, PF, 30 mcg/0.3 mL dose 1 completed Nadia desai [facility] 06/13/2021 12:18:27 COVID-19, mRNA, LNP-S, PF, 30 mcg/0.3 mL dose [facility] 12:18:32 COVID-19, mRNA, LNP-S, PF, 30 mcg/0.3 mL dose [facility]22 08:46:37 COVID-19, mRNA, LNP-S, PF, 30 mcg/0.3 mL dose 2 completed Kathleen Gatica [facility], [facility] 11/26/2022 08:46:54 influenza, unspecified formulation 1 completed Kathleen Gatica [facility], [facility] 11/26/2022 08:47:18 influenza, unspecified formulation 2 completed Kathleen Gatica [facility] 11/26/2022 14:46:18 Influenza, split virus, quadrivalent, preservative 8 completed Cee Lea [facility] 11/09/2018 08:46:15 Influenza, split virus, quadrivalent, preservative 0 completed Diego June DO [address] [place] [address], [address], [facility] 07/29/2020 09:04:12 zoster recombinant 0 completed Umm Eli [facility] 09/13/2020 13:57:32 zoster, unspecified formulation 0 completed Diego June DO [address] [place] [address], [address], [facility] 11/23/2020 15:53:05 Past Encounters Encounter ID Performer Location Encounter Start Date Encounter Closed Date Diagnosis/Indication Diagnosis SNOMED-CT Code Diagnosis ICD10 Code Diagnosis IMO Codes Diagnosis Note [id number] Diego June DO [facility] [address] [place] [address],[place] [address] 03/17/2018 10:25:40 03/17/2018 11:04:18 Upper respiratory infection 21145929 J06.9 Please take prescribed or OTC medication s as above. Pt advised to rest, drink clear fluids, use a humidifier , gargle with warm salt water, use Acetominop hen and/or Ibuprofen for fever or pain. Pt advised to notify provider: if temp >101 or persists for >3weeks, if there are any signs of dehydratio n, or any problems breathing. [id number] Diego June [facility] [address] [place] [address], ite D [facility] [address] 06/15/2021 14:54:54 06/15/2021 15:48:47 Adult health examination 549435026 Z00.00 doing well and feels good [id number] Diego June [facility] [address] [place] [address], [place] [address] 11/26/2022 14:38:12 11/26/2022 16:03:15 Hyperlipidemia screening 290927346 Z13.220 she is reviewed in detail we will have her change her diet a bit and rechk [id number] Diego June [facility] [address] [place] [address], [place] [address] 05/14/2023 09:11:06 05/14/2023 11:52:52 Fatigue 32373112 R53.83 agreed to full panel work up given her symptoms Dysuria 55272895 R30.0 will also r/o a UTI since that can commonly have the symptoms in older women [id number] Diego June [facility] [address] [place] [address], [place] [address] 06/13/2023 11:06:16 06/13/2023 14:23:47 Active or passive immunization 902840825 Z23 utd Adult heal th examination 978551406 Z00.00 doing well and feels goodreview ed in detail her lab et c [id number] Diego June [facility] [address] [facility], [place] [address] 06/15/2024 10:56:14 06/15/2024 15:33:46 Depression screening 169180901 Z13.31 neg Adult heal th examination 624321173 Z00.00 doing well and feels goodreview ed in detail her lab et c Fatigue 87148921 R53.83 [id number] Diego Nereyda Flip [facility] [address] [facility] [address],[place] [address] 12/24/2024 09:10:07 12/24/2024 12:04:48 Cataract 193922825 H26.9 will be getting OS done first [id number] Diego Dawn Flip [facility] [address] [facility] [address],[place] [address] 07/19/2025 14:59:26 07/19/2025 15:37:48 Active or passive immunization 649768309 Z23 utd Depression screening 171 262287 Z13.31 neg Well adult 544245650 Z00 .00 23488995 doing well and feels goodreview ed in detail her lab et c [id number] YUDITH BARKER [facility] [address] [facility] [address],[place] [address] 10/28/2025 14:43:02 10/28/2025 15:21:05 Pain of right knee joint 3968822468 10222 M25.561 249528 Synovial p opliteal cyst of right knee 0444060679 M71.21 5402858 probable pettit's cystrecomm ended cortisone injection Pain of le ft knee joint 9572847116 67798 M25.562 572683 Primary go narthrosis, bilateral 987129831 M17.0 [id number] Health Concerns Section Related Observation LastModified by Organization Detai ls LastModified Time None Recorded Concern Status LastModified by Organization Details LastModified Time None Recorded Advance Directives Directive None Recorded Payers Insurance Date Sequence Insurance Name Policy Number Policy Allred Covered Member ID Allred Member ID Guarantor Name 10/28/[address] [place] [address] [id number] Corine Toure [id number] Corine Toure Notes Date Note Type Note Provider Name a nd Address Organization Details Recorded Time 3 text/html Annual WellnessReported by PatientSocial/Behavio ral HistoryFor diet and nutrition, patient reportshealthy diet. For fracture risk, patient reportsno history of fractures,no recent explained fracture,no sudden unexplained fractures, andno previous musculoskeletal injuries. For physical activity, patient reportsexercises on a regular basis,recent increase in physical activity, andgood physical condition. For additional lifestyle factors, patient reportsno tobacco use,no alcohol intake, andstopped drinking alcohol.Mental Status:For depression risk, patient reportsnever feels sad, empty, or tearful,no loss of interest in activities,no significant changes in weight,no sleep disturbances or insomnia,no agitation,no loss of energy,no feelings of worthlessness or guilt,no thoughts of suicide,no history of depression, andno history of mood disorders.Functional AbilityFor hearing, patient reportsno loss of hearing. For vision, patient reportsno vision problems.ROS as noted in the HPI Diego June DO [address] [place], [address], [facility] 06/13/2023 12:32:08 4 text/html Annual WellnessReported by PatientSocial/Behavio ral HistoryFor diet and nutrition, patient reportshealthy diet. For fracture risk, patient reportsno history of fractures,no recent explained fracture,no sudden unexplained fractures, andno previous musculoskeletal injuries. For physical activity, patient reportsexercises on a regular basis,recent increase in physical activity, andgood physical condition. For additional lifestyle factors, patient reportsno tobacco use,no alcohol intake, andstopped drinking alcohol.Mental Status:For depression risk, patient reportsnever feels sad, empty, or tearful,no loss of interest in activities,no significant changes in weight,no sleep disturbances or insomnia,no agitation,no loss of energy,no feelings of worthlessness or guilt,no thoughts of suicide,no history of depression, andno history of mood disorders.Functional AbilityFor hearing, patient reportsno loss of hearing. For vision, patient reportsno vision problems.ROS as noted in the HPI here for cpe states is feeling well Diego June DO [address] [facility], [place], [address], [facility] 06/15/2024 11:37:19 5 text/html ROS as noted in the HPI here for her pre op for cataractsPatient presents for pre-op evaluation.no major issues going on Diego JuneDO [address] [place], [address], [facility] 12/24/2024 09:39:49 5 text/html Annual WellnessReported by PatientSocial/Behavio ral HistoryFor diet and nutrition, patient reportshealthy diet. For fracture risk, patient reportsno history of fractures,no recent explained fracture,no sudden unexplained fractures, andno previous musculoskeletal injuries. For physical activity, patient reportsexercises on a regular basis,recent increase in physical activity, andgood physical condition. For additional lifestyle factors, patient reportsno tobacco use,no alcohol intake, andstopped drinking alcohol.Mental Status:For depression risk, patient reportsnever feels sad, empty, or tearful,no loss of interest in activities,no significant changes in weight,no sleep disturbances or insomnia,no agitation,no loss of energy,no feelings of worthlessness or guilt,no thoughts of suicide,no history of depression, andno history of mood disorders.Functional AbilityFor hearing, patient reportsno loss of hearing. For vision, patient reportsno vision problems.ROS as noted in the HPI here for rocio 'doing well overall despite taking care of her 101 year old momshe gets worried on occ and sometimes doesnt sleep well Diego JuneDO [address] [place], [address], [facility] 07/19/2025 15:36:32 5 text/html ROS as noted in the HPI [...] which pt agrees towill fu next week ADITI TRYBA, PA [address] [facility], [place], [address], [place] [facility] 10/28/2025 15:21:04 OBGyn Episode No OBEpisode recorded.
--- OUTSIDE RECORDS SUMMARY | 2025-10-29 12:11 | XMS_ITS | Encounter Summary ---
Author Organization [facility] Address [address] [place] [address] Phone Care Team Providers Care Chiropractor Sole Practitioner Name Role Phone Flip Diego Sena DO Primary Care Provider [phone] Diego Castelan DO Primary Care Provider [phone] Encounter Details Date Type Department Care Team (Late st Contact Info) Description 11/13/2018 Procedure Pass [facility]oscopy Admitting Dept Virtual Department [address] [place] [address] Social History Tobacco Use Types Packs/Day Years [...] on filedocumented in this encounter Care Teams Chiropractor Sole Practitioner Relationship Specialty Start Date End Date Diego Castelan DO PCP - General 09/09/17 09/26/25 Diego Castelan DO [address] [place] [address] PCP - General Internal Medicine 09/27/25 documented as of this encounter Additional Source Comments The information contained in this document represents components of the legal health record. It is not the complete legal health record.[facility]
--- OUTSIDE RECORDS SUMMARY | 2025-10-29 12:11 | XMS_ITS | Encounter Summary ---
Author Organization [facility] Address [address] [place] [address] Phone Care Team Providers Care Science Tutor Name Role Phone Diego Castelan DO Primary Care Provider [phone] Diego Castelan DO Primary Care Provider [phone] Encounter Details Date Type Department Care Team (Late st Contact Info) Description 08/07/2018 Ancillary Orders Virtual Department [address] [place] [address] Diego Castelan DO [address] [facility] [place] [address] [place] [address] [email or web address] Breast screening Social History Tobacco Use Types Packs/Day Years Used Date Smoking Tobacco: Never Assessed Comments Unknown Sex and Gender Information Value Date Recorded Sex Assigned at Not on file Legal Sex Female 9:59 PM EDT Gender Identity Not on file Sexual Orientation Not on file documented as of this encounter Plan of Treatment Not on file documented as of this encounter Results * BI MAMMOGRAM SCREENING WITH TOMOSYNTHESIS WITH CAD (BILATERAL) (09/07/2018 3:37 PM EDT) Anatomical Region Laterality Modality Breast Left, Breast Right, Breast Bilateral Bila teral Mammography 09/08/2018 2:26 PM EDT Impressions 09/08/2018 2:31 PM EDT No mammographic change indicative of malignancy. Routine screening is recommended. BI-RADS CATEGORY: 2 - Benign finding. DENSITY: The breast tissue is almost entirely fat. POS - CD[facility]AM2 Narrative 09/08/2018 2:31 PM EDT FINDINGS: Bilateral full-field digital screening mammography is obtained and read in conjunction with computer-aided detection. 3-D tomosynthesis as well as 2-D C view imaging is also performed. Comparison includes the most recent exam from 06/26/2017 and as far back as 03/25/2012. Breasts are composed of predominantly fatty tissue. Stable tiny grouping of calcifications in the upper, slightly inner left breast. No new suspicious mass, suspicious microcalcifications, architectural distortion, focal skin thickening, or new asymmetry is detected. Procedure Note Charanjit Vicente MD - 09/08/2018 FINDINGS: Bilateral full-field digital screening mammography is obtained and read inconjunction with computer-aided detection. 3-D tomosynthesis as well as2-D C view imaging is also performed. Comparison includes the most recentexam from 06/26/2017 and as far back as 03/25/2012. Breasts are composed of predominantly fatty tissue. Stable tiny groupingof calcifications in the upper, slightly inner left breast. No newsuspicious mass, suspicious microcalcifications, architectural distortion,focal skin thickening, or new asymmetry is detected. IMPRESSION: No mammographic change indicative of malignancy. Routine screening isrecommended. BI-RADS CATEGORY: 2 - Benign finding. DENSITY: The breast tissue is almost entirely fat. POS - CDHMAM2 Diego Castelan DO IMG MG EXAMS Final Result documented in this encounter Visit Diagnoses Diagnosis Breast screening Breast screening, unspecified Breast screening Breast screening, unspecified documented in this encounter Care Teams Science Tutor Relationship Specialty Start Date End Date Diego Castelan DO [email or web address] PCP - General 09/09/17 09/26/25 Diego Castelan DO [address] [place] [address] PCP - General Internal Medicine 09/27/25 documented as of this encounter Additional Source Comments The information contained in this document represents components of the legal health record. It is not the complete legal health record.[facility]
--- OUTSIDE RECORDS SUMMARY | 2025-10-29 12:11 | XMS_ITS | Encounter Summary ---
Author Organization [facility] Address [address] [place] [phone] Phone Care Team Providers Care Apparel Stock Checker Name Role Phone Diego Castelan DO Primary Care Provider [phone] Diego Castelan DO Primary Care Provider [phone] Encounter Details Date Type Department Care Team ([facility] st Contact Info) Description 04/18/2023 Transcribe Orders Virtual Department [address] [place] [address] Diego Castelan DO [address] [facility] [place] [address] [place] [address] [email or web address] Breast screening [...] MAMMOGRAM SCREENING WITH TOMOSYNTHESIS WITH CAD (BILATERAL) (05/09/2023 3:27 PM EDT) Anatomical Region Laterality Modality Breast Left, Breast Right, Breast Bilateral Bila teral Mammography 05/09/2023 4:08 PM EDT Impressions 05/09/2023 4:14 PM EDT No findings suspicious for malignancy are identified. In the absence of a worrisome palpable abnormality, annual screening mammography is recommended. BI-RADS CATEGORY: 1 - Negative. DENSITY: There are scattered fibroglandular densities. Narrative 05/09/2023 4:14 PM EDT AVAILABLE COMPARISON: 04/17/2022 through 02/20/2006 Bilateral 3-D tomosynthesis with 2-D reconstructions in the CC and MLO projection. Computer-aided detection system was utilized. No new mass, asymmetry, architectural distortion or suspicious calcifications have become apparent in either breast. Procedure Note Steven Verma MD - 05/09/2023 AVAILABLE COMPARISON: 04/17/2022 through 02/20/2006 Bilateral 3-D tomosynthesis with 2-D reconstructions in the CC and MLOprojection. Computer-aided detection system was utilized. No new mass, asymmetry, architectural distortion or suspiciouscalcifications have become apparent in either breast. IMPRESSION: No findings suspicious for malignancy are identified. In the absence of aworrisome palpable abnormality, annual screening mammography isrecommended. BI-RADS CATEGORY: 1 - Negative. DENSITY: There are scattered fibroglandular densities. Diego Castelan DO IMG MG EXAMS Final Result documented in this encounter Visit Diagnoses Diagnosis Breast screening- Primary Breast screening, unspecified Breast screening Breast screening, unspecified documented in this encounter Care Teams Apparel Stock Checker Relationship Specialty Start Date End Date Diego Castelan DO [email or web address] PCP - General 09/09/17 09/26/25 Diego Castelan DO [address] [place] [address] [email or web address] PCP - General Internal Medicine 09/27/25 documented as of this encounter Additional Source Comments The information contained in this document represents components of the legal health record. It is not the complete legal health record.[facility]
--- OUTSIDE RECORDS SUMMARY | 2025-10-29 12:11 | XMS_ITS | Encounter Summary ---
Author Organization [facility] Address [address] [place] [phone] Phone Care Team Providers Care Junior High School Teacher Name Role Phone Zhouann Diego Sena DO Primary Care Provider [phone] Diego Castelan DO Primary Care Provider [phone] Encounter Details Date Type Department Care Team (Late st Contact Info) Description 02/15/2021 Procedure Pass [address] [address] Social History Tobacco Use Types Packs/Day Years [...] on filedocumented in this encounter Care Teams Junior [employer] Teacher Relationship Specialty Start Date End Date Diego Castelan DO PCP - General 09/09/17 09/26/25 Diego Castelan DO [address] [place] [phone] PCP - General Internal Medicine 09/27/25 documented as of this encounter Additional Source Comments The information contained in this document represents components of the legal health record. It is not the complete legal health record.[facility]
--- OUTSIDE RECORDS SUMMARY | 2025-10-29 12:11 | XMS_ITS | Clinical Summary ---
Author Organization [facility] Address [address] [place] [phone] Phone Care Team Providers Care Vegetable Loader Name Role Phone Mathieu June DO Primary Care Provider [phone] Allergies No known active allergies Medications multivitamin Liqd Take 5 mL by mouth daily. Active bran/gum/fib/nazario /psyl/kelp/pec (FIBER 6 ORAL) Take by mouth. Active Active Problems Problem Noted Date Diagnosed Date Gastroesophageal reflux disease 03/17/2018 Spinal stenosis 03/17/2018 Encounters Date Type Department Care Team Description 09/27/2025 2:44 PM EST - 09/27/2025 11:59 PM [facility] Hospital Encounter [address] [address] Mathieu June DO Discharge Disposition: Home or Self Care 07/04/2025 Procedure Pass [address] [address] from Last 3 Months Immunizations Immunization Administration Dates Next Due INFLUENZA, SPLIT VIRUS, TRIVALENT PF 07/27/2020 Influenza High-Dose Trivalent Preservative Free IM 09/20/2019 Influenza Quadrivalent Adjuvanted Preservative F ree IM 09/27/2021 Influenza Trivalent Adjuvanted Preservative free IM 11/07/2018 Pneumococcal conjugate PCV13 10/08/2021 Tdap 10/22/2021,10/08/2017 Zoster recombinant 11/22/2020,09/12/2020 Family History Medical History Relation Comments Cancer Father Stomach cancer Breast cancer Neg Hx Relation Status Comments Father Social History Tobacco Use Types Packs/Day Years Used Date Smoking Tobacco: Former Cigarettes 0.3 10 0 11/24/1985 - 11/28/1989 Smokeless Tobacco: Never Tobacco Cessation:Counseling Given: Not Answered Alcohol Use Standard Drinks/Week Comments Yes 2 [...] on file Sexual Orientation Not on file Last Filed Vital Signs Vital Sign Reading Time Taken Comments Blood Pressure 112/74 05/11/2023 12:50 PM EDT Pulse 74 05/11/2023 12:50 PM EDT Temperature 37.1 C (98.7 F) 05/11/2023 12:50 PM EDT Respiratory Rate 18 05/11/2023 12:50 PM EDT Oxygen Saturation 98% 05/11/2023 12:50 PM EDT Inhaled Oxygen Concentration - - Weight 77.1 kg (170 lb) 05/11/2023 12:50 PM EDT Height 170.2 cm (5' 7 ) 05/11/2023 12:50 PM EDT Body Mass Index 26.63 05/11/2023 12:50 PM EDT Plan of Treatment Health Maintenance Due Date Last Done Comments LIPID PANEL 1955 DEPRESSION SCREENING 1965 SMOKING Hx and SMOKELESS TOBACCO SCREENING 1966 HEPATITIS C SCREENING 1971 COLOGUARD 1998 FIT TEST 1998 FOBT 1998 SIGMOIDOSCOPY 1998 VIRTUAL COLONOSCOPY 1998 PNEUMOCOCCAL VACCINES (50+ years) (2 of 2 - PCV20 or PCV21) 10/08/2022 10/08/2021 INFLUENZA VACCINE (#1) 2025 2, 09/27/2021, 07/27/2020, Additional history exists COVID-19 VACCINE ( season) 2025 11/22/2022, 11/22/2022, 10/22/2021, Additional history exists MAMMOGRAM 09/27/2027 09/27/2025, 0604/2023, 04/17/2022, Additional history exists RSV VACCINE (1 - 1-dose 75+ series) 02/10/2028 COLONOSCOPY 11/13/2028 11/13/2018 COLORECTAL CANCER SCREENING 11/13/2028 Adult Td,Tdap Booster 10/22/2031 10/22/2021, 017 ZOSTER VACCINES Completed 11/22/2020, 09/12/2020 OSTEOPOROSIS SCREENING INITIAL (ONE-TIME) Completed 04/16/2021 HEPATITIS A VACCINES Aged Out No long er eligible based on patient's age to complete this topic HIB VACCINES Aged Out No longer eligi ble based on patient's age to complete this topic MENINGOCOCCAL VACCINES (ACWY) Aged Out No longer eligible based on patient's age to complete this topic MENINGOCOCCAL VACCINES (B) Aged Out N o longer eligible based on patient's age to complete this topic Medical Devices Not on file Procedures Procedure Name Priority Date/Time Associated Diagnosis Comments BI MAMMOGRAM SCREENING WITH TOMOSYNTHESIS WITH CAD (BILATERAL) Routine 09/27/2025 3:09 PM EST Breast screening BD DXA AXIAL (SPINE) WITH HIP Routine 04/16/2021 10:55 AM EDT Osteopenia, unspecified location ENDOSCOPY, COLON 11/13/2018 12:0 8 PM EST from Last 3 Months or Most Recently Relevant to Health Maintenance Results * BI MAMMOGRAM SCREENING WITH TOMOSYNTHESIS [...] be notified of the results and recommendations. us Mathieu A Bigda DO IMG MG EXAMS Final Result * BD DXA AXIAL (SPINE) WITH HIP (04/16/2021 10:55 AM EDT) Anatomical Region Laterality Modality Bone Density Bone Density 04/16/2021 1:57 PM EDT Impressions 04/16/2021 1:58 PM EDT Osteopenia. POS - [id number] Narrative 04/16/2021 1:58 PM EDT This is [...] the right hip was calculated at 0.755 gm/tl2hcrv a T-score of -1.5 and Z-score of -0.1 falling within the WHOclassification of osteopenia. Total bone mineral density in the left hipwas calculated at 0.811 gm/cm2 with a T-score of -1.1 and Z-score of 0.3falling within the WHO classification of osteopenia. IMPRESSION: Osteopenia. POS - [id number] us Mathieu A Bigda DO IMG BD BONE DENSITY DEXA Final R esult * ENDOSCOPY, COLON (11/13/2018 12:08 PM EST) Narrative Transcriptions Uche Campos MD - 11/13/2018 12:08 PM EST Patient Name: Zayra Abdi Attending MD:: UCHE CAMPOS MD, Procedure Date: 11/13/2018 12:08PM Date of : 1955 Age: 63 Admit Type: Outpatient Gender: Female Room: [place] [address] Referring MD: MATHIEU JUNE DO Exam Type: Colonoscopy Indications: Screening for colorectal malignant neoplasm Medications: Monitored Anesthesia Care Procedure: Informed consent was obtained from the patient after discussion of the indications, limitations,alternatives, benefits, and risks of the procedure. Risksspecifically discussed include but are not limited to medication reactions, missed lesions, bleeding, perforation, orthe need for emergent surgery. Throughout the procedure, the patient's blood pressure, pulse, end-tidal CO2, and oxygen saturations were monitored continuously. The Olympus pediatric variable colonoscope [id number] was introduced through the anus and advanced to thececum, identified by appendiceal orifice and ileocecal valve.The colonoscopy was performed without difficulty. Thepatient tolerated the procedure well. The quality of the bowel preparation was excellent. The quality of the bowel preparation was evaluated using the BBPS ([place] Bowel Preparation Scale) with scores of: Right Colon = 3, Transverse Colon = 3 and Left Colon = 3 (entire mucosa seen well with no residual staining, small fragments of stool or opaque liquid). The total BBPS score equals9. Complications: No immediate complications. Estimated blood loss:None. Findings: The perianal and digital rectal examinations werenormal. A few small-mouthed diverticula were found in thesigmoid colon. Internal hemorrhoids were found during retroflexion.The hemorrhoids were mild. No other significant abnormalities were identified in a careful examination of the remainder of the colon. Impression: - Diverticulosis in the sigmoid colon. - Internal hemorrhoids. - No specimens collected. Recommendation: - Discharge patient to home. - Repeat colonoscopy in 10 years for screeningpurposes. UCHE CAMPOS MD, 11/13/2018 12:36:43 PM This report has been signed electronically. Number of Addenda: 0 Note Initiated On: 11/13/2018 12:08 PM Procedure Code(s): --- Professional --- 56438, Colonoscopy, flexible; diagnostic, including collection of specimen(s) by brushing or washing, when performed (separateprocedure) --- Technical --- 49780, Colonoscopy, flexible; diagnostic, including collection of specimen(s) by brushing or washing, when performed (separateprocedure) Diagnosis Code(s): --- Professional --- K57.30, Diverticulosis of large intestine without perforation orabscess without bleeding K64.8, Other hemorrhoids Z12.11, Encounter for screening for malignant neoplasm of colon --- Technical --- K57.30, Diverticulosis of large intestine without perforation orabscess without bleeding K64.8, Other hemorrhoids Z12.11, Encounter for screening for malignant neoplasm of colon CPT copyright 2016 [employer]. All rights reserved. The codes documented in this report are preliminary and upon aerospace project manager reviewmay be revised to meet current compliance requirements. [address] [place] [address] Mathieu June DO GI PROCEDURE ORDERABLES Final Re sult from Last 3 Months or Most Recently Relevant to Health Maintenance [place] [place] [address] [facility] HMO [facility] HMO [facility] Address: [address] [address] Care Teams Vegetable Loader Relationship Specialty Start Date End Date Mathieu June DO [address] [place] [address] PCP - General Internal Medicine 09/27/25 Additional Source Comments The information contained in this document represents components of the legal health record. It is not the complete legal health record.[facility]
--- OUTSIDE RECORDS SUMMARY | 2025-10-29 12:11 | XMS_ITS | Encounter Summary ---
Author Organization [facility] Address [address] [place] [address] Phone Care Team Providers Care Oncology Physician Assistant Name Role Phone Diego Castelan DO Primary Care Provider [phone] Diego Castelan DO Primary Care Provider [phone] Encounter Details Date Type Department Care Team (Late st Contact Info) Description 04/18/2023 Procedure Pass [address] [address] Social History Tobacco Use Types Packs/Day Years [...] on filedocumented in this encounter Care Teams Oncology Physician Assistant Relationship Specialty Start Date End Date Diego Castelan DO [email or web address] PCP - General 09/09/17 09/26/25 Diego Castelan DO [address] [place] [address] [email or web address] PCP - General Internal Medicine 09/27/25 documented as of this encounter Additional Source Comments The information contained in this document represents components of the legal health record. It is not the complete legal health record.[facility]
== END 2025-10-29 12:04 | disposition home or self-care (01) ==
LOC: HO.XRAY 12:03
PROVIDERS: PCP Internal Medicine; Referring Provider Physician Assistant; Visit Provider Physician Assistant
DX: M25.561 Pain in right knee (principal); M25.562 Pain in left knee
CPT/HCPCS: 73562

== ENCOUNTER → 2025-10-29 12:23 | Outpatient (BNV) | payer OTHER, SELFPAY | PROVIDERS: PCP Internal Medicine; Referring Provider Physician Assistant; Visit Provider Radiology Diagnostic Radiology | DX: M17.0 Bilateral primary osteoarthritis of knee (principal); M25.461 Effusion, right knee | CPT/HCPCS: 73562 ==